=== PATIENT | male | born 2000 | race African-American/Black ===

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

== ENCOUNTER 2022-05-11 08:50 | Emergency (ER) | payer OTHER ==
[2022-05-11] MEDS ORDERED: Ibuprofen 800 MG TAB ONE (09:51)
== END 2022-05-11 10:39 | disposition home or self-care (01) ==
LOC: ERS 08:50
DX: J10.1 Influenza due to other identified influenza virus with other respiratory manifestations (principal); F17.210 Nicotine dependence, cigarettes, uncomplicated
CPT/HCPCS: 87804; 99283

== ENCOUNTER 2023-01-23 22:40 | Emergency (ER) | payer OTHER ==
[2023-01-23 22:56] LABS: Hemoglobin 14.6 g/dL (14.0-18.0); Mean Corpuscular Hemoglobin 29.8 pg (25.0-35.0); Mean Corpuscular Volume 87.8 fl (78.0-98.0); Mean Platelet Volume 9.3 fL (7.4-10.4); Platelet Count 303 10x3/uL (130-400); RBC Distribution Width 13.5 % (11.5-14.5); White Blood Cell (WBC) Count 11.5 10x3/uL (4.8-10.8)
[2023-01-23 23:05] LABS: Delete Auto Diff?? YES; Manual Diff?? YES
[2023-01-23 23:12] LABS: Acetaminophen Less than 10 mcg/mL (10.0-30.0); Alcohol 112.3 mg/dL (Less than 10); Lipase 85 U/L (8-78); Salicylate Less than 8.0 mg/dL (15.0-30.0)
[2023-01-23 23:13] LABS: ALT (SGPT) 15 U/L (8-55); AST (SGOT) 21 U/L (5-34); Albumin 4.4 g/dL (3.5-5.0); Alkaline Phosphatase 69 U/L (50-130); Anion Gap 17 mmol/L (10-20); BUN (Urea Nitrogen) 8 mg/dL (8.9-20.6); Bilirubin, Total 0.2 mg/dL (0.2-1.2); Calc. Creatinine Clearance 0 mL/min (70-130); Calcium 9.5 mg/dL (7.8-10.44); Carbon Dioxide 22 mmol/L (22-29); Chloride 107 mmol/L (98-107); Estimated GFR 107; Globulin 3.6 g/dL (2.4-3.5); Glucose 105 mg/dL (70-105); Potassium 3.3 mmol/L (3.5-5.1); Sodium 143 mmol/L (136-145)
[2023-01-23] MEDS ORDERED: Ondansetron PF 4 MG/2 ML Vial ONE (23:27)
[2023-01-23 23:42] LABS: Eosinophils 3 % (0-10); Lymphocytes 24 % (28-48); Monocytes 9 % (0-4); Neutrophil 51 % (31-61); Platelet Adequacy Comment Platelets Normal; Reactive Lymphocytes 12 % (0-10); Reflex for Review?? YES; Total Cell Count 115
[2023-01-24 00:45] LABS: Bacteria/HPF None Seen HPF (None Seen); Bilirubin Negative (Negative); Blood, Urine Negative (Negative); CAUTI Indications for Culture Alt mental st,lethar; Clarity Clear (Clear); Glucose, Urine (Dipstick) Normal (Negative); Ketone, Urine Trace mg/dL (Negative); Leukocyte 75 Leu/uL (Negative); Nitrite Negative (Negative); Protein, Urine (Dipstick) 30 mg/dL (Neg-Trace); RBC/HPF 0-3 HPF (0-3); Specific Gravity, Urine 1.043 (1.002-1.036); Squamous Epithelial None Seen HPF (0-3); WBC/HPF 21-50 HPF (0-3)
[2023-01-24 00:48] LABS: Urine Culture Reflex Yes Yes
[2023-01-24 00:52] LABS: Amphetamine Not Detected (NotDetected); Barbiturates Screen Not Detected (NotDetected); Benzodiazepine Screen Not Detected (NotDetected); Cocaine Metabolite Screen Not Detected (NotDetected); Methadone Not Detected (NotDetected); Methamphetamine Not Detected (NotDetected); Opiate Screen Not Detected (NotDetected); Oxycodone Screen Not Detected (NotDetected); Phencyclidine (PCP) Not Detected (NotDetected); THC/Cannabinoid Screen Detected (NotDetected); Tricyclic Screen Not Detected (NotDetected)
[2023-01-24 18:54] LABS: Chlam.trachomatis by PCR,Urine DETECTED (NotDetected); GC N.gonorrhoeae PCR,UrineVOID DETECTED (NotDetected)
== END 2023-01-24 03:05 | disposition home or self-care (01) ==
LOC: ERS 22:40
DX: F10.129 Alcohol abuse with intoxication, unspecified (principal); F17.210 Nicotine dependence, cigarettes, uncomplicated
CPT/HCPCS: 36415; 70450; 71045; 74177; 80053; 80306; 80307; 81001; 82140; 83605; 83690; 84443; 84484; 85025; 85060; 87040; 87086; 87491; 87591; 93005; 96361; 96374; J2405

== ENCOUNTER 2023-01-28 19:54 | Emergency (ER) | payer OTHER ==
[2023-01-28] MEDS ORDERED: Bicillin LA 1.2 MILLION UNITS/2 ML SYRINGE ONE (21:53)
[2023-01-28] MEDS ORDERED: Dexamethasone 10 MG/ML VIAL ONE (21:53)
[2023-01-28] MEDS ORDERED: Lidocaine 1% PF 5 ML VIAL ONE (22:25)
[2023-01-28] MEDS ORDERED: cefTRIAXone (ROCEPHIN) 500 MG VIAL ONE (22:25)
[2023-01-28 22:53] LABS: MONO NEGATIVE CONTROL ZONE White (Negative) (White); MONO POSITIVE CONTROL Pink Line (Positive) (PINK/RED); Mononucleosis NEGATIVE (NEGATIVE)
== END 2023-01-28 23:26 | disposition home or self-care (01) ==
LOC: ERS 19:54
DX: A54.5 Gonococcal pharyngitis (principal); A74.9 Chlamydial infection, unspecified; F17.210 Nicotine dependence, cigarettes, uncomplicated
CPT/HCPCS: 36415; 86308; 87081; 87430; 96372; 99283; J0561; J0696; J1100